=== PATIENT | male | born 1970 | race Caucasian/White ===

== ENCOUNTER → 2017-09-04 | Outpatient (REF) | payer OTHER | LOC: M SMT 16:59 | DX: R97.20 Elevated prostate specific antigen [PSA] (principal) | CPT/HCPCS: 87086 ==

== ENCOUNTER → 2017-09-18 | Outpatient (CLI) | payer OTHER | LOC: M SMT PRO 08:24 | DX: R97.20 Elevated prostate specific antigen [PSA] (principal) | CPT/HCPCS: G0416 ==